=== PATIENT | male | born 1965 | race African-American/Black ===

== ENCOUNTER 2022-10-10 17:02 | Inpatient (IN) | payer MEDICARE, OTHER ==
--- OUTSIDE RECORDS SUMMARY | 2022-10-10 17:13 | XMS REPORT | Continuity of Care Document ---
:1965 Author Organization [facility] t Address [address] [place] [address] Care Team Providers Name Role Phone Stevens Anselmo Cathy Attending Clinician Unavailable Lia Lugo Attending Clinician Ogarturo_Jay Attending Clinician Unavailable Marcelo_Yaneth Attending Clinician Unavailable Agatha Robertson Attending Clinician GAY_S Attending Clinician Unavailable Leida Encinas RN Attending Clinician CANDY VILLARREAL M.D. Attending Clinician Unavailable Yaelhiwillam_Jay Admitting Clinician Unavailable Marcelo_Yaneth Admitting Clinician Unavailable GAY_S Admitting Clinician Unavailable Payers Payer Name Policy Type Policy Number Effective Date Expiration Date S jaky MEDICARE PART A \T\ [id number] 2018 B 00:00:00 [employer] MEDICARE ADV [id number] 2017 00:00:00 [facility] [id number] 2021 (MEDICARE 00:00:00 REPLACEMENT HMO) Problems Condition Condition Condition Status Onset Resolution Last Treating Co mments Source Name Details Category Date Date Treatment Clinician Date COVID-19 COVID-19 Disease Active Unive rs 7- ity of 00:00: [place] [address] Medical Branch Primary Primary Diagnosis Active Commo n osteoarthr osteoarthr Sp claribel itis of itis of - [facility] left knee left knee [facility] Morbid Morbid Diagnosis Active Common obesity obesity [facility] Pain, Pain, Diagnosis Active Common joint, joint, Spirit knee, left knee, left - [facility] BMI 70 and BMI 70 and Problem Active U T over, over, Physici adult adult ans Observed Observed Problem Active UT sleep sleep Physici apnea apnea ans Shortness Shortness Problem Active UT of breath of breath Phys ici ans Knee pain Knee pain Problem Active [facility] Physici ans Morbid Morbid Problem Active UT obesity obesity Physici ans Allergies, Adverse Reactions, Alerts Allergy Allergy Status Severity Reaction(s) Onset Inactive Treating Comm ents Source Name Type Date Date Clinician NO KNOWN Drug Active Univers ALLERGIE Class ity of S [facility] Family History Family Member Diagnosis Comments Start Date Stop Date Source Unknown Family Family history of Family History [facility] Member Morbid obesity Social History Social Habit Start Date Stop Date Quantity Comments Source Sex Assigned At Uni versity [facility] Exposure to SARS-CoV-2 Not sure Un iversity [facility] (event) Medical Branch Smoking Status Start Date Stop Date Source Unknown if ever smoked Universit y [facility] Medications Ordered Filled Start Stop Current Ordering Indication Dosage Frequency Signature Comments Components Source Medication Medication Date Date Medication? Clinician (SIG) Name Name naproxen 2019-0 Yes 220mg Take 220 Univ ers sodium 7-24 mg by ity of (ANAPROX) 20:01: mouth 2 [place] 220 mg 20 (two) Medical tablet times Branch daily with meals. albuterol 2019-0 Yes [id number] 2{puff} Inhale 2 Univers 90 7-24 Puffs ity of mcg/actuati 00:00: every 6 [place] as on inhaler 00 (six) Medical hours as Branch needed for Wheezing or Shortness of Breath. guaiFENesin 2020-0 Yes [id number] 100mg Take 5 mL Univers 100 mg/5 mL 7-24 by mouth ity of solution 00:00: every 6 [place] 00 (six) Medical hours as Branch needed for Cough. metFORMIN 2020-0 2020- No [id number] 850mg Take 1 Univers 850 mg 7-24 08-24 tablet by ity of tablet 00:00: 04:59 mouth 2 [place] 00 :00 (two) Medical times Branch daily with meals for 30 days. doxycycline 2020-0 2020- No [id number] 100mg Take 1 Univers hyclate 100 7-24 08- capsule by i ty of mg capsule 00:00: 04:59 mouth [place] 00 :00 every 12 Medical (twelve) Branch hours for 7 days. nystatin-tr 2017-0 Yes Apply to Un madi iamcinolone 7-16 area(s) 3 ity of cream 00:00: (three) [place] 00 times Medical daily. Branch ciprofloxac Yes 500mg Take 1 Uni vers in HCl 500 7-11 tablet by ity of mg tablet 00:00: mouth 2 [place] 00 (two) Medical times Branch daily. traMADOL Yes 50mg Take 1 Univers (ULTRAM) 50 6-19 tablet by ity of mg tablet 00:00: mouth [place] 00 every 6 Medical (six) Branch hours as needed for Pain (scale 7-10). Calcium + Calcium + Yes [place] not Co mmon D3 D3 [place]antara defined [facility] Clobeta Clobeta Yes [place] not Common Ointment Ointment [place] defined Spir [facility] Ozempic Ozempic Yes [place] not Common [place] defined [facility] Metformin Metformin Yes [place] not Co mmon HCl HCl [place] defined [facility] Candesartan Candesartan Yes [place] not Common Cilexetil Cilexetil [place] defined Sp claribel [facility] Aleve CAPS Aleve CAPS Yes UT Physici ans Meloxicam Meloxicam Yes UT TABS TABS Physici ans Vital Signs Vital Name Observation Time Observation Value Comments Source Height 2019-06-19 10:52:00 69 [in_us] [facility] Body Mass Index 2019-06-19 10:52:00 30.33 kg/m2 [facility] Calculated Weight 2019-06-19 10:52:00 205.375 [lb_av] [facility] Height 2019-06-19 10:02:00 69 [in_us] [facility] Body Mass Index 2019-06-19 10:02:00 73.99 kg/m2 [facility] Calculated Weight 2019-06-19 10:02:00 501 [lb_av] [facility] Procedures Procedure Date / Time Performed Performing Clinician Sour e [U] XRAY KNEE 4 OR MORE VWS 2019-06-19 00:00:00 [facility] BILATERAL [id number] [U] XRAY KNEE 4 OR MORE VWS 2019-06-18 00:00:00 [facility] BILATERAL [id number] History of Umbilical Hernia [facility] Repair History of Knee Surgery [facility] Encounters Start End Encounter Admission Attending Care Care Encounter Source Date/Time Date/Time Type Type Clinicians Facility Department ID 2021-11-22 Outpatient Anselmo Stevens [facility] [id number] - Common 11:00:47 [id number] [facility] 2021-11-22 Outpatient Anselmo Stevens [facility] [id number] Common 11:00:24 [id number] [facility] 2021-08-25 Emergency [facility] [id number] Univers 07:48:21 ity of [place] [facility] 2022-07-04 2022-07-04 CAV Lia [id number]. [id number]. [facility] [id number] Devoted 18:00:00 19:00:00 [place] [id number] Medical [id number] 2022-06-21 2022-06-21 [facility] [id number] Devoted 00:00:00 00:00:00 0825 Medica l Group 2022-05-11 2022-05-11 Outpatient Adams_R [facility] [id number] Devoted 03:28:00 03:28:00 0715 Medica l Group 2021-12-15 2021-12-15 CAV Agatha [id number]. [id number]. [facility] [id number] Devoted 20:00:00 21:00:00 Robertson [id number] Medical [id number] 2021-12-11 2021-12-11 Outpatient Adams_R [facility] [id number] Devoted 12:07:00 12:07:00 0214 Medica l Group 2021-11-02 2021-11-02 [facility] [id number] Devoted 02:56:00 02:56:00 0106 Medica l Group 2021-10-18 2021-10-18 [facility] [id number] Devoted 04:00:00 04:00:00 1222 Medica l Group 2021-08-10 2021-08-10 Outpatient GAYLORD_S [facility] [id number] Devoted 11:00:00 11:00:00 1014 Medica l Group 2021-03-22 2021-03-22 Outpatient GAYLORD_S [facility] [id number] Devoted 05:11:00 05:11:00 0526 Medica l Group 2021-02-27 2021-02-27 Outpatient DMG [facility]G [id number] Devoted 06:02:00 06:02:00 0503 Medica l Group 2021-02-17 2021-02-17 Outpatient [facility]G MAXIMILIANG [id number] Devoted 08:00:00 08:00:00 0423 Medica l Group 2020-05-23 2020-05-23 Transition Jose Encinas [id number] 00:00:00 00:00:00 of Care Leida Erickson [id number] [place] [id number] [facility] 2020-05-23 2020-05-23 Transition Jose Encinas [id number] Univers 00:00:00 00:00:00 of Care Leida Erickson [id number] it [place] of [place] [id number] [address] Branch 2019-11-10 2019-11-10 Out[facility] [id number] Common 08:00:00 08:00:00 t [facility] 2019-06-19 2019-06-19 Appointmen [facility] Orthopedics [id number] [place] 08:45:00 08:45:00 t; CANDY VILLARREAL M.D. [facility] deniz GUPTA M.D. Results This patient has no known results.
[2022-10-10] MEDS ORDERED: IPRATROPIUM BROM 0.5MG/2.5ML ONE ×2 (17:36→19:14)
[2022-10-10] MEDS ORDERED: ALBUTEROL 2.5 MG/3 ML NEB SOL ONE ×2 (17:36→19:14)
[2022-10-10] MEDS ORDERED: ACETAMINOPHEN 500 MG TAB ONE (17:36)
[2022-10-10 17:44] LABS: Absolute Lymphocytes (CBC) 0.6 K/uL (0.7-4.9); Hematocrit 38.5 % (39.6-49.0); Lymphocytes % 7.9 % (15.3-44.8); MCV 88.1 fL (80-100); MPV 9.3 fL (7.6-11.3); RBC Red Blood Cell Count 4.37 M/uL (4.33-5.43)
[2022-10-10 17:45] LABS: Protime INR 1.13
[2022-10-10 18:00] LABS: Albumin 3.3 g/dL (3.4-5.0); Bilirubin Total 0.3 mg/dL (0.2-1.0); Protein, Total 7.9 g/dL (6.4-8.2); Troponin High Sensitivity 29.6 pg/mL (<58.9)
--- NOTE | 2022-10-10 18:27 | RAD REPORT ---
EXAM DESCRIPTION: Carole Single View10/10/2022 6:00 pm CLINICAL HISTORY: sob COMPARISON: none FINDINGS: The lungs appear grossly clear The heart is normal size
[2022-10-10 18:30] LABS: SARS-COV-2 RT PCR NEGATIVE (NEGATIVE)
[2022-10-10] MEDS ORDERED: OSELTAMIVIR 75 MG CAP PO ONE (19:14)
--- NOTE | 2022-10-10 19:30 | EDPHYS ---
Physician Documentation [facility] Name: Francisco Mejia Age: 57 yrs Sex: Male : 1965 Arrival Date: 10/10/2022 Time: 17:11 Bed 15 Private MD: ED Physician Remigio Jerez HPI: 10/10 22:11 This 57 yrs old Black Male presents to ER via EMS with complaints of Shortness Of kb Breath. 22:11 The patient has shortness of breath at rest. Onset: The symptoms/episode began/occurred kb today. Duration: The symptoms are continuous. The patient's shortness of breath is aggravated by exertion. Associated signs and symptoms: Pertinent positives: non-productive cough, fever. Severity of symptoms: At their worst the symptoms were moderate in the emergency department the symptoms are unchanged. The patient has not experienced similar symptoms in the past. The patient has not recently seen a physician. Historical: - Allergies: 17:16 No Known Allergies; ap3 - PMHx: 17:15 Diabetes mellitus; Hypertensive disorder; ap3 - Immunization history:: Client reports having NOT received the Covid vaccine. Flu vaccine is not up to date. - Social history:: Smoking status: Patient denies any tobacco usage or history of. Patient uses alcohol, weekly. ROS: 22:11 Constitutional: Negative for fever, chills, and weight loss. kb 22:11 Respiratory: Positive for cough, dyspnea on exertion, shortness of breath. 22:11 All other systems are negative. Exam: 22:11 Constitutional: This is a well developed, well nourished patient who is awake, alert, kb and in no acute distress. Head/Face: Normocephalic, atraumatic. ENT: Moist Mucous membranes Cardiovascular: Regular rate and rhythm with a normal S1 and S2. No gallops, murmurs, or rubs. No pulse deficits. Abdomen/GI: Soft, non-tender. No distention Skin: Warm, dry with normal turgor. Normal color. MS/ Extremity: Pulses equal, no cyanosis. Neurovascular intact. Full, normal range of motion. Neuro: Awake and alert, GCS 15, oriented to person, place, time, and situation. Moves all extremities. Normal gait. Psych: Awake, alert, with orientation to person, place and time. Behavior, mood, and affect are within normal limits. 22:11 Respiratory: moderate respiratory distress is noted, Respirations: labored breathing, that is moderate, Breath sounds: are clear throughout. 22:50 ECG was reviewed by the Attending Physician. kb Vital Signs: 17:11 BP 183 / 97; Pulse 116; Resp 32; Temp 100.6; Pulse Ox 95% on R/A; Weight 226.8 kg; ap3 Height 5 ft. 10 in. (177.80 cm); 17:18 Weight 233 kg; ap3 19:45 BP 148 / 77; Pulse 98; Resp 37 S; Temp 100.3(O); Pulse Ox 94% on 2 lpm NC; jb4 20:45 BP 154 / 90; Pulse 93; Resp 26; Pulse Ox 94% on 2 lpm NC; jb4 21:15 Temp 99.3(O); jb4 17:18 Body Mass Index 73.70 (233.00 kg, 177.80 cm) ap3 MDM: 17:14 Patient medically screened. kb 19:26 Data reviewed: vital signs, nurses notes. Data interpreted: Pulse oximetry: on room air kb is 95 %. Interpretation: normal. Counseling: I had a detailed discussion with the patient and/or guardian regarding: the historical points, exam findings, and any diagnostic results supporting the discharge/admit diagnosis, lab results, radiology results, the need for further work-up and treatment in the hospital. Physician consultation: Carine Daily PA-C was contacted at 19:28, and will see patient in ED. 19:28 ED course: Pt still tachypneic with labored respirations. O2 sat dropped to 88% at the kb lowest. Will admit for obs. 10/10 17:21 Order name: Glucose, Ancillary Testing; Complete Time: 17:23 EDMS 10/10 17:21 Order name: Blood Culture Adult (2) kb 10/10 17:21 Order name: CBC with Diff; Complete Time: 17:46 kb 10/10 17:21 Order name: CMP; Complete Time: 18:04 kb 10/10 17:21 Order name: Lactate w/ 2H reflex if indic.; Complete Time: 18:04 kb 10/10 17:21 Order name: Protime (+inr); Complete Time: 17:46 kb 10/10 17:21 Order name: Ptt, Activated; Complete Time: 17:46 kb 10/10 17:21 Order name: Chest Single View XRAY; Complete Time: 18:33 kb 10/10 17:21 Order name: COVID-19/FLU A+B; Complete Time: 18:49 kb 10/10 17:22 Order name: Troponin HS; Complete Time: 18:04 kb 10/10 17:22 Order name: BNP; Complete Time: 18:04 kb 10/10 20:12 Order name: ABG sb4 10/10 17:21 Order name: EKG; Complete Time: 17:22 kb 10/10 17:21 Order name: Accucheck; Complete Time: 17:40 kb 10/10 17:21 Order name: Cardiac monitoring; Complete Time: 17:40 kb 10/10 17:21 Order name: EKG - Nurse/Tech; Complete Time: 17:40 kb 10/10 17:21 Order name: IV Saline Lock - Large Bore; Complete Time: 17:40 kb 10/10 17:21 Order name: Labs collected and sent; Complete Time: 17:40 kb 10/10 17:21 Order name: O2 Per Protocol; Complete Time: 17:40 kb 10/10 17:21 Order name: O2 Sat Monitoring; Complete Time: 17:40 kb 10/10 17:21 Order name: Vital Signs; Complete Time: 17:40 kb EC:50 Rate is 105 beats/min. Rhythm is regular. Left axis deviation noted. [place] interval is kb normal at 162 msec. QRS interval is normal at 90 msec. QT interval is normal at 428 msec. Administered Medications: 17:39 Drug: Acetaminophen 1000 mg Route: PO; ap3 19:17 Follow up: Response: No adverse reaction ap3 17:39 Drug: Albuterol 2.5 mg Route: Inhalation; ap3 17:54 Follow up: Response: No adverse reaction ap3 17:39 Drug: AtroVENT (ipratropium) Aerosol 0.5 mg Route: Inhalation; ap3 17:54 Follow up: Response: No adverse reaction ap3 19:17 Drug: Tamiflu (oseltamivir) 75 mg Route: PO; ap3 19:17 Drug: AtroVENT (ipratropium) Aerosol 0.5 mg Route: Inhalation; ap3 19:17 Drug: Albuterol 2.5 mg Route: Inhalation; ap3 Disposition Summary: 10/10/22 19:29 Hospitalization Ordered Hospitalization Status: Observation kb Provider: Mau Guzmán Location: Telemetry/MedSurg (observation) kb Condition: Fair kb Problem: new kb Symptoms: are unchanged kb Bed/Room Type: Standard kb Room Assignment: 213(10/10/22 20:37) eb1 Diagnosis - Influenza due to identified novel influenza A virus kb - Hypoxia kb Forms: - Medication Reconciliation Form kb - SBAR form kb Signatures: Dispatcher [employer] EDSherry Guzman FNP-C FNP-Ckb Prokisch, Amanda RN RN ap3 Bonita Thompson RN RN eb1 Corrections: (The following items were deleted from the chart) 20:37 19:29 kb eb1
--- NOTE | 2022-10-10 19:30 | ER ---
Nurse's Notes [facility] Name: Francisco Mejia Age: 57 yrs Sex: Male : 1965 Arrival Date: 10/10/2022 Time: 17:11 Bed 15 Private MD: Diagnosis: Influenza due to identified novel influenza A virus;Hypoxia Presentation: 10/10 17:12 Chief complaint: EMS states: they were called to the patients home due to him having ap3 shortness of breath throughout the day that was getting worse. patient states he feels like he needs to cough something up, but is unable to. Coronavirus screen: Client presents with at least one sign or symptom that may indicate coronavirus-19. Ebola Screen: No symptoms or risks identified at this time. Initial Sepsis Screen: Does the patient meet any 2 criteria? RR > 20 per min. Temp <36.0*C (96.8*F)) or > 38.3*C (100.9*F). HR > 90 bpm. Yes Does the patient have a suspected source of infection? Yes: Productive cough/pneumonia. Risk Assessment: Do you want to hurt yourself or someone else? Patient reports no desire to harm self or others. Onset of symptoms was October 10, 2022. 17:12 Method Of Arrival: EMS: [facility] ap3 17:12 Acuity: LAWANDA 2 ap3 Triage Assessment: 17:13 General: Appears distressed, Behavior is cooperative, appropriate for age, anxious. ap3 Pain: Denies pain. Neuro: Level of Consciousness is awake, alert, obeys commands, Oriented to person, place, time, Gait is steady, Speech is normal. Cardiovascular: Patient's skin is warm and dry. Respiratory: Airway is patent Respiratory effort is labored, Respiratory pattern is tachypnea. Historical: - Allergies: 17:16 No Known Allergies; ap3 - PMHx: 17:15 Diabetes mellitus; Hypertensive disorder; ap3 - Immunization history:: Client reports having NOT received the Covid vaccine. Flu vaccine is not up to date. - Social history:: Smoking status: Patient denies any tobacco usage or history of. Patient uses alcohol, weekly. Screenin:14 Abuse screen: Denies threats or abuse. Nutritional screening: No deficits noted. ap3 Tuberculosis screening: No symptoms or risk factors identified. 17:15 [facility] ED Fall Risk Assessment (Adult) History of falling in the last 3 months, ap3 including since admission No falls in past 3 months (0 pts) Confusion or Disorientation No (0 pts) Intoxicated or Sedated No (0 pts) Impaired Gait No (0 pts) Mobility Assist Device Used No (0 pt) Altered Elimination No (0 pt) Score/Fall Risk Level 0 - 2 = Low Risk Oriented to surroundings, Maintained a safe environment, Educated pt \T\ family on fall prevention, incl call for assistance when getting out of bed, Assessed \T\ reinforced patient's understanding of fall precautions, Provided non-skid footwear, Hourly rounding (assess needs \T\ fall precautionary measures) done, Used ambulatory aids as needed (educated on \T\ assisted with), Used gait belt as appropriate. 17:15 Humpty Dumpty Scale Fall Assessment Tool (age< 18yrs) Age 13 years and above (1 pt). ap3 Fall Risk No fall in past 12 months (0 pts). Assessment: 18:10 Reassessment: Patient and/or family updated on plan of care and expected duration. Pain ap3 level reassessed. Patient is alert, oriented x 3, equal unlabored respirations, skin warm/dry/pink. 19:45 Neuro: Level of Consciousness is awake, alert, obeys commands, Oriented to person, jb4 place, time, situation. Respiratory: Airway is patent Respiratory effort is labored, shallow, Respiratory pattern is symmetrical, tachypnea Breath sounds are clear in right upper lobe, right middle lobe, right lower lobe, right posterior upper lobe, right posterior middle lobe and right posterior lower lobe Breath sounds are diminished in left upper lobe, left lower lobe, left posterior upper lobe and left posterior lower lobe Breath sounds with wheezes in left upper lobe, left lower lobe, left posterior upper lobe and left posterior lower lobe. 20:49 Reassessment: No changes from previously documented assessment. Attempted to call jb4 report, instructed to wait for call back. Vital Signs: 17:11 BP 183 / 97; Pulse 116; Resp 32; Temp 100.6; Pulse Ox 95% on R/A; Weight 226.8 kg; ap3 Height 5 ft. 10 in. (177.80 cm); 17:18 Weight 233 kg; ap3 19:45 BP 148 / 77; Pulse 98; Resp 37 S; Temp 100.3(O); Pulse Ox 94% on 2 lpm NC; jb4 20:45 BP 154 / 90; Pulse 93; Resp 26; Pulse Ox 94% on 2 lpm NC; jb4 21:15 Temp 99.3(O); jb4 17:18 Body Mass Index 73.70 (233.00 kg, 177.80 cm) ap3 ED Course: 17:11 Patient arrived in ED. ap3 17:13 Triage completed. ap3 17:14 Sherry Connor FNP-C is PHCP. kb 17:14 Remigio Jerez MD is Attending Physician. kb 17:14 Arm band placed on right wrist. ap3 17:14 Patient has correct armband on for positive identification. Bed in low position. Call ap3 light in reach. pvc monitor on. Pulse ox on. NIBP on. Door closed. Noise minimized. 17:16 Beverly Tsai, MAG is Primary Nurse. ap3 17:40 Inserted saline lock: 20 gauge in right antecubital area, using aseptic technique. ap3 Blood collected. 17:45 COVID-19/FLU A+B Sent. ap3 18:02 Chest Single View XRAY In Process Unspecified. EDMS 19:29 Mau Guzmán MD is Hospitalizing Provider. kb 21:09 No provider procedures requiring assistance completed. Patient admitted, IV remains in jb4 place. Administered Medications: 17:39 Drug: Acetaminophen 1000 mg Route: PO; ap3 19:17 Follow up: Response: No adverse reaction ap3 17:39 Drug: Albuterol 2.5 mg Route: Inhalation; ap3 17:54 Follow up: Response: No adverse reaction ap3 17:39 Drug: AtroVENT (ipratropium) Aerosol 0.5 mg Route: Inhalation; ap3 17:54 Follow up: Response: No adverse reaction ap3 19:17 Drug: Tamiflu (oseltamivir) 75 mg Route: PO; ap3 19:17 Drug: AtroVENT (ipratropium) Aerosol 0.5 mg Route: Inhalation; ap3 19:17 Drug: Albuterol 2.5 mg Route: Inhalation; ap3 Medication: 17:16 VIS not applicable for this client. ap3 Outcome: 19:29 Decision to Hospitalize by Provider. kb 21:09 Admitted to Med/surg accompanied by nurse, via stretcher, room 213, with chart, Report jb4 called to MAG Miller 21:09 Condition: stable 21:09 Discharge instructions given to patient, family, Instructed on the need for admit, Demonstrated understanding of instructions. 21:41 Patient left the ED. jb4 Signatures: Dispatcher [employer] EDMS Sherry Connor, MOVIE EDITOR-C MOVIE EDITOR-Donis Segura RN RN jb4 Beverly Tsai RN RN ap3 Corrections: (The following items were deleted from the chart) 17:22 17:11 BP 183 / 97; Pulse 116bpm; Resp 32bpm; Pulse Ox 65% RA; Temp 100.6F; 226.8 kg; ap3 Height 5 ft. 10 in.; BMI: 71.7; ap3
--- NOTE | 2022-10-10 19:49 | P.HP ---
Certification for Inpatient Patient admitted to: Observation With expected LOS: <2 Midnights Patient will require the following post-hospital care: None Practitioner: I am a practitioner with admitting privileges, knowledge of patient current condition, hospital course, and medical plan of care. Services: Services provided to patient in accordance with Admission requirements found in Title 42 Section 412.3 of the Code of Federal Regulations Patient History Date of Service: 10/10/22 Reason for admission: Influenza History of Present Illness: Patient is a 57 year old male with past medical history of hypertension, non- insulin dependent type 2 diabetes, and morbid obesity who presented to the ED with complaints of shortness of breath. Patient was noted to be tachycardic, tachypneic, hypertensive, febrile, and hypoxic at 80% on RA upon arrival to ED. No significant lab abnormalities. Chest xray negative. He is positive for influenza A. He was given 2 rounds of breathing treatments, tamiflu, and tylenol in the ED. He continues to be tachypneic, saturating 94% on 2L. Lungs are clear. ABG is pending. Patient is admitted for further management. 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 - Family History Family History: Reviewed- Non-Contributory - Social History Smoking Status: Never smoker Alcohol use: No CD- Drugs: No Caffeine use: Yes Place of Residence: Home Review of Systems General: Weakness Respiratory: Cough, Shortness of Breath, SOB with Excertion Physical Examination - Vital Signs Temperature: 100.3 F Blood Pressure: 148/77 Pulse: 98 Respirations: 37 Pulse Ox (%): 94 (2L NC) - Physical Exam General: Alert, In no apparent distress, Obese HEENT: Atraumatic, PERRLA, EOMI, Sclerae nonicteric Neck: Supple, 2+ carotid pulse no bruit, No LAD, Without JVD or thyroid abnormality Respiratory: Clear to auscultation bilaterally, Normal air movement Cardiovascular: Regular rate/rhythm, Normal S1 S2 Gastrointestinal: Normal bowel sounds, No tenderness Musculoskeletal: No tenderness Integumentary: No rashes Neurological: Normal speech, Normal strength at 5/5 x4 extr, Normal affect - Studies Laboratory Data (last 24 hrs) 10/10/22 17:28: PT 12.4, INR 1.13, APTT 38.1 H 10/10/22 17:28: Sodium 138, Potassium 4.0, BUN 11, Creatinine 1.18, Glucose 152 H, Total Bilirubin 0.3, AST 24, ALT 27, Alkaline Phosphatase 76 10/10/22 17:28: WBC 8.10, Hgb 12.6 L, Hct 38.5 L, Plt Count 181 Assessment and Plan - Problems (Diagnosis) (1) Acute respiratory failure with hypoxia Current Visit: Yes Status: Acute (2) Influenza A Current Visit: Yes Status: Acute (3) Viral sepsis Current Visit: Yes Status: Acute (4) HTN (hypertension) Current Visit: Yes Status: Chronic Qualifiers: Hypertension type: primary hypertension Qualified Code(s): I10 - Essential (primary) hypertension (5) Obesity Current Visit: Yes Status: Chronic Qualifiers: Obesity type: due to excess calories Obesity classification: adult class 3 (BMI >= 40) Serious obesity comorbidity presence: with serious comorbidity Body mass index: BMI 70 or greater Qualified Code(s): E66.01 - Morbid (severe) obesity due to excess calories; Z68.45 - Body mass index [BMI] 70 or greater, adult; Z68.45 - Body mass index [BMI] 70 or greater, adult (6) Type 2 diabetes mellitus Current Visit: Yes Status: Chronic Qualifiers: Diabetes mellitus chcf insulin use: without termination clerk use Diabetes mellitus complication status: with hyperglycemia Qualified Code(s): E11.65 - Type 2 diabetes mellitus with hyperglycemia - Plan Patient is admitted for observation. Technically meeting sepsis criteria with influenza + tachycardia + tachypnea + fever. Fever has now resolved. Placed on bipap as patient was not moving air appropriately. ABG pending. Continue supportive measures with supplemental O2, breathing treatments, and antitussives. Scheduled tamiflu and solumedrol. ACHS accu checks with mild sliding scale and diabetic diet. Monitor and replete electrolytes per protocol. Reconcile and continue home medications. Lovenox for VTE prophylaxis. Full code. Discharge Plan: Home Plan to discharge in: 24 Hours - Advance Directives Does patient have a Living Will: No Does patient have a Durable POA for Healthcare: No - Code Status/Comfort Care Code Status Assessed: Yes Code Status: Full Code Physician Review: Patient Assessed, Agree with Above Assessment and Plan Critical Care: No Time Spent Managing Pts Care (In Minutes): 50
[2022-10-10] MEDS: INSULIN -REGULAR HUMAN 50 UNIT/0.5 ML ML SQ SCH (21:38)
[2022-10-10] MEDS ORDERED: ACETAMINOPHEN 325 MG TABLET PO PRN (21:38)
[2022-10-10] MEDS ORDERED: ALBUTEROL 2.5 MG/3 ML NEB SOL NEB PRN (21:38)
[2022-10-10] MEDS ORDERED: ONDANSETRON 4 MG/2 ML VIAL IV PRN (21:38)
[2022-10-10 21:56] VITALS: BMI 73.8
[2022-10-10] MEDS: IPRATROPIUM BROM 0.5MG/2.5ML NEB PRN (22:10)
[2022-10-10] MEDS: NA CHLORIDE 0.9% 1,000 ML IV SCH (22:19)
[2022-10-10] MEDS: BENZONATATE 100 MG CAP PO PRN (22:19)
[2022-10-10 23:15] LABS: Specific Gravity 1.024 (1.005-1.030); Urine Bacteria <20 /HPF (<20); Urine Bilirubin NEGATIVE (Negative); Urine Blood 2+ (Negative); Urine Clarity Clear (Clear); Urine Color Yellow (Yellow); Urine Glucose NEGATIVE (Negative); Urine Mucus Slight /HPF (None Seen); Urine Protein TRACE (Negative); Urine RBC <5 /HPF (None Seen); Urine Urobilinogen Normal (Normal); Urine pH 5.5 (5.0-7.0)
[2022-10-11] MEDS: METHYLPREDNISOLONE 40 MG INJ IV SCH ×3 (00:42→16:20)
[2022-10-11] MEDS: HYDRALAZINE HCL 20 MG/ML VIAL IV PRN ×2 (02:41→15:53)
[2022-10-11] MEDS: GUAIFENESIN 600 MG SA TAB PO PRN (02:58)
[2022-10-11] MEDS: VALSARTAN 160 MG TAB PO SCH (05:04)
[2022-10-11 06:07] LABS: Absolute Lymphocytes (CBC) 0.4 K/uL (0.7-4.9); Hematocrit 37.5 % (39.6-49.0); Lymphocytes % 4.8 % (15.3-44.8); MCV 87.7 fL (80-100); MPV 9.1 fL (7.6-11.3); RBC Red Blood Cell Count 4.28 M/uL (4.33-5.43)
[2022-10-11 06:27] LABS: Phosphorus 2.7 mg/dL (2.5-4.9); Potassium 4.4 mmol/L (3.5-5.1); Thyroid Stimulating Hormone 0.119 uIU/mL (0.358-3.740)
[2022-10-11] MEDS: INSULIN -REGULAR HUMAN 50 UNIT/0.5 ML ML SQ SCH ×4 (07:30→21:00)
[2022-10-11 07:38] LABS: Blood Morphology Comment NOT SEEN (NOT SEEN); Platelet Estimate ADEQ; White Blood Cell Scan OK (OK)
--- NOTE | 2022-10-11 08:03 | EKG ---
Test Date: 2022-10-10 Test Time: 17:11:58 Lifter Driver: TOM MEASUREMENT RESULTS: Intervals: Rate: 105 WI: 162 QRSD: 90 QT: 324 QTc: 428 [place]: P: 61 WI: 162 QRS: -40 T: 63 INTERPRETIVE STATEMENTS: Sinus tachycardia Left axis deviation Abnormal ECG No previous ECG available for comparison Electronically Signed On 10-11-22 08:01:43 CUSTOMER LEADER by Catalino Valdovinos
[2022-10-11] MEDS: METFORMIN HCL 500 MG TAB PO SCH ×2 (10:16→22:20)
[2022-10-11] MEDS: ENOXAPARIN 40 MG/0.4 ML SQ SCH (10:16)
[2022-10-11] MEDS: OSELTAMIVIR 75 MG CAP PO SCH ×2 (10:16→22:22)
[2022-10-11] MEDS: NA CHLORIDE 0.9% 1,000 ML IV SCH ×2 (10:58→22:23)
[2022-10-11] MEDS ORDERED: ALBUTEROL 2.5 MG/3 ML NEB SOL NEB PRN (15:00)
[2022-10-11] MEDS: BENZONATATE 100 MG CAP PO PRN (22:22)
[2022-10-12] MEDS: NA CHLORIDE 0.9% 1,000 ML IV SCH ×2 (00:18→13:38)
[2022-10-12] MEDS: METHYLPREDNISOLONE 40 MG INJ IV SCH ×3 (01:16→17:00)
[2022-10-12] MEDS: GUAIFENESIN 600 MG SA TAB PO PRN ×2 (01:16→20:18)
[2022-10-12] MEDS: IPRATROPIUM BROM 0.5MG/2.5ML NEB PRN (01:20)
[2022-10-12] MEDS: HYDRALAZINE HCL 20 MG/ML VIAL IV PRN ×2 (01:55→09:58)
--- NOTE | 2022-10-12 01:55 | P.PN ---
Date of Service: 10/11/22 Subjective Patient is morbidly obese. Patient having hard time breathing. Still very SOB and on BIPAP Physical Examination - Vital Signs reviewed - Physical Exam General: Alert, In no apparent distress, Obese Respiratory: Basilar crackles but otherwise clear Cardiovascular: Regular rate/rhythm, Normal S1 S2 Gastrointestinal: Normal bowel sounds, No tenderness Neurological: No focal deficits Assessment and Plan - Problems (Diagnosis) (1) Acute respiratory failure with hypoxia Current Visit: Yes Status: Acute (2) Influenza A Current Visit: Yes Status: Acute (3) Viral sepsis Current Visit: Yes Status: Acute (4) HTN (hypertension) Current Visit: Yes Status: Chronic Qualifiers: Hypertension type: primary hypertension Qualified Code(s): I10 - Essential (primary) hypertension (5) Obesity Current Visit: Yes Status: Chronic Qualifiers: Obesity type: due to excess calories Obesity classification: adult class 3 (BMI >= 40) Serious obesity comorbidity presence: with serious comorbidity Body mass index: BMI 70 or greater Qualified Code(s): E66.01 - Morbid (severe) obesity due to excess calories; Z68.45 - Body mass index [BMI] 70 or greater, adult; Z68.45 - Body mass index [BMI] 70 or greater, adult (6) Type 2 diabetes mellitus Current Visit: Yes Status: Chronic Qualifiers: Diabetes mellitus buttermaker continuous churn insulin use: without buttermaker continuous churn use Diabetes mellitus complication status: with hyperglycemia Qualified Code(s): E11.65 - Type 2 diabetes mellitus with hyperglycemia - Plan Continue with bipap/reviewed ABG Continue BIPAP and wean to supplemental O2, breathing treatments, and antitussives. Scheduled tamiflu and solumedrol. ACHS accu checks with mild sliding scale and diabetic diet. Lovenox for VTE prophylaxis. Full code.
[2022-10-12 07:16] LABS: Absolute Lymphocytes (CBC) 0.5 K/uL (0.7-4.9); Hematocrit 40.3 % (39.6-49.0); Lymphocytes % 7.3 % (15.3-44.8); MCV 88.6 fL (80-100); MPV 9.5 fL (7.6-11.3); RBC Red Blood Cell Count 4.55 M/uL (4.33-5.43)
[2022-10-12] MEDS: INSULIN -REGULAR HUMAN 50 UNIT/0.5 ML ML SQ SCH ×4 (07:30→20:00)
[2022-10-12 07:43] LABS: Potassium 4.7 mmol/L (3.5-5.1)
--- NOTE | 2022-10-12 07:50 | RAD REPORT ---
EXAM DESCRIPTION: Carole Single View10/12/2022 6:50 am CLINICAL HISTORY: Pneumonia COMPARISON: October 10, 2022 FINDINGS: Mild right lung opacities. Left lung appears grossly clear. Heart is normal size IMPRESSION: Mild right lung opacities may represent pneumonia
[2022-10-12] MEDS: METFORMIN HCL 500 MG TAB PO SCH ×2 (09:58→20:18)
[2022-10-12] MEDS: ENOXAPARIN 40 MG/0.4 ML SQ SCH (09:58)
[2022-10-12] MEDS: VALSARTAN 160 MG TAB PO SCH (09:59)
[2022-10-12] MEDS: OSELTAMIVIR 75 MG CAP PO SCH ×2 (09:59→20:18)
[2022-10-12] MEDS ORDERED: FUROSEMIDE 20 MG/ 2ML VIAL IV ONE (17:15)
[2022-10-13] MEDS: CEFTRIAXONE 1,000 MG in NA CHLORIDE 0.9% 50 ML IVPB SCH ×3 (05:09→22:23)
[2022-10-13] MEDS: DOXAZOSIN 4 MG TAB PO SCH ×3 (05:10→21:00)
[2022-10-13] MEDS: BENZONATATE 100 MG CAP PO PRN ×2 (05:10→22:34)
[2022-10-13] MEDS: METHYLPREDNISOLONE 40 MG INJ IV SCH ×2 (05:10→16:23)
[2022-10-13] MEDS: HYDRALAZINE HCL 20 MG/ML VIAL IV PRN (05:10)
[2022-10-13] MEDS: INSULIN -REGULAR HUMAN 50 UNIT/0.5 ML ML SQ SCH ×4 (07:30→21:00)
[2022-10-13 07:42] LABS: Potassium 4.6 mmol/L (3.5-5.1)
[2022-10-13] MEDS ORDERED: ALBUMIN HUMAN 25% 12.5 GM, FUROSEMIDE 100 MG in NA CHLORIDE 0.9% 40 ML IV SCH (09:00)
[2022-10-13] MEDS: FUROSEMIDE 20 MG/ 2ML VIAL IV SCH ×2 (09:09→16:23)
[2022-10-13] MEDS: ENOXAPARIN 40 MG/0.4 ML SQ SCH (09:10)
[2022-10-13] MEDS: METFORMIN HCL 500 MG TAB PO SCH ×2 (09:11→22:23)
[2022-10-13] MEDS: allopurinoL 300 MG TAB PO SCH (09:11)
[2022-10-13] MEDS: VALSARTAN 160 MG TAB PO SCH (09:13)
[2022-10-13] MEDS: OSELTAMIVIR 75 MG CAP PO SCH ×2 (09:13→22:24)
[2022-10-13] MEDS: AZITHROMYCIN IV 250 MG in NA CHLORIDE 0.9% 250 ML IVPB SCH (10:00)
[2022-10-13 22:05] VITALS: O2SAT 97
[2022-10-13] MEDS ORDERED: CEFTRIAXONE 1000 MG/VIAL ONE (22:17)
[2022-10-13] MEDS ORDERED: DOXAZOSIN 2 MG TAB ONE (22:18)
[2022-10-13] MEDS ORDERED: NA CHLORIDE 0.9% 50 ML ONE (22:22)
[2022-10-14] MEDS: METHYLPREDNISOLONE 40 MG INJ IV SCH (05:08)
[2022-10-14] MEDS: INSULIN -REGULAR HUMAN 50 UNIT/0.5 ML ML SQ SCH (07:30)
--- NOTE | 2022-10-14 08:06 | P.PN ---
Date of Service: 10/13/22 Subjective patient doing much better. Arranging for home oxygen. He is doing well and anticipate discharge tomorrow. He is ambulating without difficulty and were continued to diurese. Chest x-ray with no worrisome findings. Physical Examination - Vital Signs reviewed - Physical Exam General: Alert, In no apparent distress, Obese Respiratory: Clear to auscultation bilaterally, Normal air movement Cardiovascular: Regular rate/rhythm, Normal S1 S2 Gastrointestinal: Normal bowel sounds, No tenderness Neurological: No focal deficits Assessment and Plan - Problems (Diagnosis) (1) Acute respiratory failure with hypoxia Current Visit: Yes Status: Acute (2) Influenza A Current Visit: Yes Status: Acute (3) Viral sepsis Current Visit: Yes Status: Acute (4) HTN (hypertension) Current Visit: Yes Status: Chronic Qualifiers: Hypertension type: primary hypertension Qualified Code(s): I10 - Essential (primary) hypertension (5) Obesity Current Visit: Yes Status: Chronic Qualifiers: Obesity type: due to excess calories Obesity classification: adult class 3 (BMI >= 40) Serious obesity comorbidity presence: with serious comorbidity Body mass index: BMI 70 or greater Qualified Code(s): E66.01 - Morbid (severe) obesity due to excess calories; Z68.45 - Body mass index [BMI] 70 or greater, adult; Z68.45 - Body mass index [BMI] 70 or greater, adult (6) Type 2 diabetes mellitus Current Visit: Yes Status: Chronic Qualifiers: Diabetes mellitus correction insulin use: without correction use Diabetes mellitus complication status: with hyperglycemia Qualified Code(s): E11.65 - Type 2 diabetes mellitus with hyperglycemia - Plan 1. Continue with antiviral therapy 2. Cx negative 3. Chest x-ray with no abnormality 4. Continue with nebs as needed 5. O2 per protocol 6. Heplock IV 7. GI and DVT prophylaxis
[2022-10-14] MEDS ORDERED: DOXAZOSIN 2 MG TAB ONE (08:48)
[2022-10-14 08:51] VITALS: BP 112/70; TEMP 98
[2022-10-14] MEDS: DOXAZOSIN 4 MG TAB PO SCH (09:00)
[2022-10-14] MEDS: OSELTAMIVIR 75 MG CAP PO SCH (09:00)
[2022-10-14] MEDS: GUAIFENESIN 600 MG SA TAB PO PRN (09:00)
[2022-10-14] MEDS: VALSARTAN 160 MG TAB PO SCH (09:00)
[2022-10-14] MEDS: METFORMIN HCL 500 MG TAB PO SCH (09:01)
[2022-10-14] MEDS: allopurinoL 300 MG TAB PO SCH (09:01)
[2022-10-14] MEDS: ENOXAPARIN 40 MG/0.4 ML SQ SCH (09:01)
[2022-10-14] MEDS: FUROSEMIDE 20 MG/ 2ML VIAL IV SCH (09:02)
[2022-10-14] MEDS: CEFTRIAXONE 1,000 MG in NA CHLORIDE 0.9% 50 ML IVPB SCH (09:04)
[2022-10-14] MEDS: AZITHROMYCIN IV 250 MG in NA CHLORIDE 0.9% 250 ML IVPB SCH (10:01)
[2022-10-14] MEDS: BENZONATATE 100 MG CAP PO PRN (10:35)
--- NOTE | 2022-10-15 06:49 | ECHO ---
HEIGHT: 5 ft 10 in WEIGHT: 514 lb 8 oz DATE OF STUDY: 10/12/[address]: Mau Guzmán MD 2-DIMENSIONAL: YES M.MODE: YES DOPPLER: YES COLOR FLOW: YES TDS: PORTABLE: DEFINITY: BUBBLE STUDY: DIAGNOSIS: CONGESTIVE HEART FAILURE CARDIAC HISTORY: CATHERIZATION: SURGERY: PROSTHETIC VALVE: PACEMAKER: MEASUREMENTS (cm) DIASTOLIC (NORMALS) SYSTOLIC (NORMALS) IVSd 1.4 (0.6-1.2) LA Diam 4.2 (1.9-4.0) LVEF 59% LVIDd 4.6 (3.5-5.7) LVIDs 3.2 (2.0-3.5) %FS 31% LVPWd 1.5 (0.6-1.2) Ao Diam 3.1 (2.0-3.7) 2 DIMENSIONAL ASSESSMENT: RIGHT ATRIUM: NOT WELL SEEN LEFT ATRIUM: ENLARGED RIGHT VENTRICLE: NOT WELL SEEN LEFT VENTRICLE: NORMAL TRICUSPID VALVE: NOT WELL SEEN MITRAL VALVE: NORMAL PULMONIC VALVE: NOT WELL SEEN AORTIC VALVE: NORMAL PERICARDIAL EFFUSION: NOT WELL SEEN AORTIC ROOT: NORMAL LEFT VENTRICULAR WALL MOTION: NORMAL DOPPLER/COLOR FLOW: SEE BELOW COMMENTS: 1. POOR WINDOWS 2. NORMAL LEFT VENTRICULAR EJECTION FRACTION 55-60% AND NORMAL WALL MOTION 3. LEFT ATRIAL ENLARGEMENT 4. COULD NOT EVALUATE THE RIGHT HEART DUE TO POOR WINDOWS TECHNOLOGIST: KOTA MCGOWAN
--- NOTE | 2022-10-20 21:51 | P.PN ---
Date of Service: 10/12/22 Subjective Patient no new complaints. His clinical symptoms to improve. Encouraging him to get out of bed to ambulate. Continue monitoring O2 on room air. Physical Examination - Vital Signs reviewed - Physical Exam General: Alert, In no apparent distress, Obese Respiratory: Clear bilaterally Cardiovascular: Regular rate/rhythm, Normal S1 S2 Gastrointestinal: Normal bowel sounds, No tenderness Neurological: No focal deficits Assessment and Plan - Problems (Diagnosis) (1) Acute respiratory failure with hypoxia Current Visit: Yes Status: Acute (2) Influenza A Current Visit: Yes Status: Acute (3) Viral sepsis Current Visit: Yes Status: Acute (4) HTN (hypertension) Current Visit: Yes Status: Chronic Qualifiers: Hypertension type: primary hypertension Qualified Code(s): I10 - Essential (primary) hypertension (5) Obesity Current Visit: Yes Status: Chronic Qualifiers: Obesity type: due to excess calories Obesity classification: adult class 3 (BMI >= 40) Serious obesity comorbidity presence: with serious comorbidity Body mass index: BMI 70 or greater Qualified Code(s): E66.01 - Morbid (severe) obesity due to excess calories; Z68.45 - Body mass index [BMI] 70 or greater, adult; Z68.45 - Body mass index [BMI] 70 or greater, adult (6) Type 2 diabetes mellitus Current Visit: Yes Status: Chronic Qualifiers: Diabetes mellitus custodial insulin use: without custodial use Diabetes mellitus complication status: with hyperglycemia Qualified Code(s): E11.65 - Type 2 diabetes mellitus with hyperglycemia - Plan -Continue BIPAP and wean to supplemental O2, breathing treatments, and antitussives. -Scheduled tamiflu and solumedrol. -OOB and ambulate and arrange for DC planning -ACHS accu checks with mild sliding scale and diabetic diet. -Lovenox for VTE prophylaxis. -Full code.
--- NOTE | 2022-10-20 21:55 | P.DS ---
Discharge Date: 10/14/22 Disposition: ROUTINE DISCHARGE Discharge Condition: GOOD Reason for Admission: Influenza Brief History of Present Illness: Patient is a 57 year old male with past medical history of hypertension, non- insulin dependent type 2 diabetes, and morbid obesity who presented to the ED with complaints of shortness of breath. Patient was noted to be tachycardic, tachypneic, hypertensive, febrile, and hypoxic at 80% on RA upon arrival to ED. No significant lab abnormalities. Chest xray negative. He is positive for influenza A. He was given 2 rounds of breathing treatments, tamiflu, and tylenol in the ED. He continues to be tachypneic, saturating 94% on 2L. Lungs are clear. ABG is pending. Patient is admitted for further management. Hospital Course: Patient has done well during hospitalization. Respiratory status has improved. We will arrange for home oxygen. Patient is ambulating without difficulty at this time. He does get a little tachypneic. Home oxygen has been set up for case management. At this time, patient is stable for discharge home with outpatient follow-up. Vital Signs/Physical Exam: Temp Pulse Resp BP Pulse Ox 98.0 F 69 20 112/70 94 10/14/22 08:00 10/14/22 09:04 10/14/22 08:00 10/14/22 09:04 10/14/22 08:00 General: Alert, In no apparent distress, Oriented x3 Laboratory Data at Discharge: WBC 6.30 K/uL (4.3-10.9) 10/12/22 06:22 Hgb 13.1 g/dL (13.6-17.9) L 10/12/22 06:22 Hct 40.3 % (39.6-49.0) 10/12/22 06:22 Plt Count 175 K/uL (152-406) 10/12/22 06:22 PT 12.4 SECONDS (9.5-12.5) 10/10/22 17:28 INR 1.13 10/10/22 17:28 APTT 38.1 SECONDS (24.3-36.9) H 10/10/22 17:28 Sodium 133 mmol/L (136-145) L 10/13/22 07:16 Potassium 4.6 mmol/L (3.5-5.1) 10/13/22 07:16 BUN 20 mg/dL (7-18) H 10/13/22 07:16 Creatinine 1.04 mg/dL (0.70-1.30) 10/13/22 07:16 Glucose 138 mg/dL (74-106) H 10/13/22 07:16 Phosphorus 2.7 mg/dL (2.5-4.9) 10/11/22 05:45 Magnesium 2.0 mg/dL (1.6-2.4) 10/11/22 05:45 Total Bilirubin 0.3 mg/dL (0.2-1.0) 10/10/22 17:28 AST 24 U/L (15-37) 10/10/22 17:28 ALT 27 U/L (16-61) 10/10/22 17:28 Alkaline Phosphatase 76 U/L (45-117) 10/10/22 17:28 Triglycerides 40 mg/dL (<150) 10/11/22 05:45 Cholesterol 166 mg/dL (<200) 10/11/22 05:45 HDL Cholesterol 64 mg/dL (40-60) H 10/11/22 05:45 Cholesterol/HDL Ratio 2.59 10/11/22 05:45 Home Medications: Metformin HCl [Metformin HCl ER] 750 mg PO BID 07/22/19 Allopurinol 300 mg PO DAILY 10/10/22 Doxazosin Mesylate 4 mg PO BID 10/10/22 Valsartan 320 mg PO DAILY 10/10/22 Albuterol Neb [Proventil 0.083% Neb Soln] 2.5 mg NEB [id number] PRN #60 amp 10/14/22 Azithromycin Tab [Zithromax*] 250 mg PO ZPAK #1 rosalie 10/14/22 Benzonatate [Tessalon Perle*] 200 mg PO TID PRN #40 cap 10/14/22 Cefdinir [Cefdinir*] 300 mg PO BID #14 cap 10/14/22 Furosemide [Lasix] 20 mg PO BIDL #60 tab 10/14/22 Ipratropium Neb [Atrovent*] 0.5 mg NEB [id number] PRN #60 amp 10/14/22 Nebulizer 1 each MC DAILY #1 box 10/14/22 Nebulizer Accessories [Aeroneb Go] 1 each MC DAILY #1 box 10/14/22 Oseltamivir [Tamiflu*] 75 mg PO BID #6 cap 10/14/22 predniSONE [Deltasone] 20 mg PO BID #20 tab 10/14/22 New Medications: Nebulizer Accessories [Aeroneb Go] 1 each MC DAILY #1 box Ipratropium Neb [Atrovent*] 0.5 mg NEB [id number] PRN #60 amp PRN Reason: Shortness Of Breath Cefdinir [Cefdinir*] 300 mg PO BID #14 cap Furosemide [Lasix] 20 mg PO BIDL #60 tab Nebulizer 1 each MC DAILY #1 box predniSONE [Deltasone] 20 mg PO BID #20 tab Albuterol Neb [Proventil 0.083% Neb Soln] 2.5 mg NEB [id number] PRN #60 amp PRN Reason: Shortness Of Breath Oseltamivir [Tamiflu*] 75 mg PO BID #6 cap Benzonatate [Tessalon Perle*] 200 mg PO TID PRN #40 cap PRN Reason: Cough Azithromycin Tab [Zithromax*] 250 mg PO ZPAK #1 rosalie Physician Discharge Instructions: -DC IV and DC home -Follow-up with PCP in 1 to 2 weeks -Follow-up with Pulmonary, Dr. Hackett, in 1 week -Please call Dr. Guzmán at [phone] if any questions regarding hospital stay -Please call nursing station at [phone] if any nursing or medication questions -Return to the emergency room if symptoms worsen Diet: AHA Activity: Fall precautions Followup: NONE,NONE [Primary Care Provider] - Time spent managing pt's care (in minutes): 35
== END 2022-10-14 14:00 | disposition home or self-care (01) | DRG 871 ==
LOC: ER 17:02 → ERHOLD 20:07 → 2ND 20:42 → OBSVTOIN 10-11 09:58
PROVIDERS: ADMIT Hospitalist; ATTEND Hospitalist
DX: A41.89 Other specified sepsis (principal); J96.01 Acute respiratory failure with hypoxia; Z68.45 Body mass index [BMI] 70 or greater, adult; R65.20 Severe sepsis without septic shock; J10.1 Influenza due to other identified influenza virus with other respiratory manifestations; E66.01 Morbid (severe) obesity due to excess calories; I10 Essential (primary) hypertension; E78.5 Hyperlipidemia, unspecified; E11.65 Type 2 diabetes mellitus with hyperglycemia; Z79.84 Long term (current) use of oral hypoglycemic drugs; Z79.52 Long term (current) use of systemic steroids; Z28.310 Unvaccinated for COVID-19; Z79.899 Other long term (current) drug therapy; Z20.822 Contact with and (suspected) exposure to COVID-19
CPT/HCPCS: 0240U; 36415; 71045; 80048; 80053; 80061; 81001; 82947; 83036; 83605; 83735; 83880; 84100; 84443; 84484; 85025; 85610; 85730; 93005; 93306; 94010; 94640; 94660; 94760; 99285; G0378; J0360; J0456; J1650; J1815; J1940; J2920; J7030; J7050; J7613; J7644